=== PATIENT | male | born 1985 | race Caucasian/White ===

== ENCOUNTER 2017-04-22 09:22 | Emergency (ER) | payer MEDICAID, OTHER ==
[2017-04-22] MEDS ORDERED: FAMOTIDINE 20 MG INJ IV (11:00)
[2017-04-22 11:39] LABS: ADD MAN DIFF? NO
[2017-04-22 11:44] LABS: BASOPHILS % 0.3 % (0.0-2.0); EOSINOPHILS # 0.1 10^3/ul (0.0-0.5); EOSINOPHILS % 0.6 % (0.0-7.0); HEMATOCRIT 49.3 % (42.0-52.0); HEMOGLOBIN 16.1 g/dl (14.0-18.0); LYMPHOCYTES # 3.6 10^3/ul (0.8-2.9); LYMPHOCYTES % 34.8 % (15.0-51.0); MEAN CORPUSCULAR HEMOGLOBIN 29.2 pg (29.0-33.0); MEAN CORPUSCULAR HGB CONC 32.7 g/dl (32.0-37.0); MEAN CORPUSCULAR VOLUME 89.5 fl (82.0-101.0); MEAN PLATELET VOLUME 10.3 fl (7.4-10.4); MONOCYTE # 0.7 10^3/ul (0.3-0.9); MONOCYTES % 6.4 % (0.0-11.0); NEUTROPHIL # 5.9 10^3/ul (1.6-7.5); NEUTROPHILS % 57.4 % (39.0-77.0); PLATELET COUNT 249 10^3/UL (140-415); RED BLOOD COUNT 5.51 10^6/ul (4.70-6.10); RED CELL DISTRIBUTION WIDTH 12.6 % (11.5-14.5)
[2017-04-22 11:44] LABS: WHITE BLOOD COUNT 10.2 10^3/ul (4.8-10.8)
[2017-04-22] MEDS: LIDOCAINE/MYLANTA 40 ML BTL PO (11:45)
[2017-04-22] MEDS: FAMOTIDINE 20 MG TAB PO (11:45)
[2017-04-22 12:11] LABS: INR 0.94; PROTIME 12.7 Sec (11.9-14.9)
[2017-04-22 12:12] LABS: PARTIAL THROMBOPLASTIN TIME 24.9 Sec (25.0-35.0)
[2017-04-22 12:14] LABS: ANION GAP 16 (8-16); BLOOD UREA NITROGEN 10 mg/dl (7-20); CALCIUM 9.6 mg/dl (8.4-10.2); CARBON DIOXIDE 25 mmol/L (21-31); CHLORIDE 104 mmol/L (97-110); CREATININE 0.91 mg/dl (0.61-1.24); GLUCOSE 125 mg/dl (70-220); SODIUM 141 mmol/L (135-144)
[2017-04-22 12:59] LABS: TROPONIN-I < 0.012 ng/ml (0.00-0.12)
== END 2017-04-22 13:50 | disposition home or self-care (01) ==
LOC: FTE 09:22
DX: R07.9 Chest pain, unspecified (principal)
CPT/HCPCS: 36415; 71045; 80048; 84484; 85025; 85610; 85730; 93005; 99285-25